=== PATIENT | male | born 1955 | race African-American/Black ===

== ENCOUNTER 2017-04-07 22:28 | Emergency (ER) | payer OTHER ==
[~2017-04-07] VITALS: Ht 188 cm; Wt 86.9 kg
[~2017-04-07 22:28] MED LIST: ASPIR 8181 M1 PO; ATENOLOL25 MG PO; CENTRUM COMPLE1 EACH PO; Cardizem CD,Cartia X PO; ELAVIL50 MG PO; ENDOCET 5-3251 EACH PO; Ecotrin PO; FISH OIL 1,0001 EA10 PO; Fish Oil PO; HYDROCHLOROTHIA25 MG PO; Hydrodiuril,Oretic,E PO; LISINOPRIL40 MG PO; LYRICA100 MG PO; NIACIN500 M1 PO; NIFEDICAL XL30 MG PO; Niaspan,Slo-Niacin PO; PLETAL50 MG PO; PRAVASTATIN SOD80 MG PO; PREDNISONE50 MG PO; Percocet 5/325,Endoc PO; Pletal PO; Pravachol PO; Procardia XL,Adalat PO; WELLBUTRIN SR150 MG PO; Wellbutrin SR PO; ZANTAC150 MG PO; Zestril,Prinivil PO
[2017-04-07 23:06] LABS: HEMATOCRIT 43.6 % (38.0-50.0); MCHC 31.4 G/DL (30.0-36.0); MCV 73.3 FL (86-99); MEAN PLAT.VOLUME 10.2 uM^3 (9.0-12.4); PLATELET COUNT 262 K/uL (156-360); RBC DIS.WIDTH-SD 40.4 % (39-53); RED BLOOD COUNT 5.95 M/uL (4.00-5.50); WHITE BLOOD COUNT 10.8 K/uL (4.1-10.2)
[2017-04-07 23:09] LABS: CHLORIDE 105 mEq/L (99-109); POTASSIUM 4.3 mEq/L (3.7-5.4); SODIUM 140 mEq/L (136-147)
[2017-04-07 23:10] LABS: GLUCOSE 77 mg/dL (70-99)
[2017-04-07 23:12] LABS: ANION GAP 9 MEQ/L (2-14)
[2017-04-07 23:14] LABS: GFR ESTIMATE (CALCULATED) > 59 mL/min/
[2017-04-07 23:15] LABS: UREA NITROGEN (BUN) 17 mg/dL (9-23)
[2017-04-07 23:21] LABS: TROP-I INTERPRETATION NEGATIVE; TROPONIN-I < 0.01 ng/mL (0.0-0.30)
[2017-04-08 02:46] LABS: PROTHROMBIN TIME 11.5 SEC (10.2-12.9)
[2017-04-08 02:48] LABS: PTT 32.4 SEC (25-37)
[2017-04-08 02:53] LABS: CREATINE KINASE 234 IU/L (1-294)
[2017-04-08] MEDS ORDERED: ULTRAM50 MG PO (03:51)
[2017-04-08 04:20] VITALS: BP 154/78
== END 2017-04-08 04:22 | disposition home or self-care (01) ==
LOC: EME 22:28
DX: R07.89 Other chest pain (principal); S46.912A Strain of unspecified muscle, fascia and tendon at shoulder and upper arm level, left arm, initial encounter; X50.9XXA Other and unspecified overexertion or strenuous movements or postures, initial encounter; Y93.53 Activity, golf; I10 Essential (primary) hypertension; E78.5 Hyperlipidemia, unspecified; I73.9 Peripheral vascular disease, unspecified; F17.200 Nicotine dependence, unspecified, uncomplicated; Z79.82 Long term (current) use of aspirin
CPT/HCPCS: 71260; 80048; 82550; 84484; 85027; 85610; 85730; 93005; 99281; 99285; J1885; J7030